=== PATIENT | male | born 1995 ===

== ENCOUNTER → 2016-09-05 14:49 | Outpatient (CLI) | payer BC ==
[~2016-09-05 14:49] MED LIST: HYDROCODONE-APA1 TAB PO; KLONOPIN1 MG PO
[2016-09-19 07:03] VITALS: BMI 33.3
== END | disposition home or self-care (01) ==
LOC: D.MRI 14:49
DX: M25.562 Pain in left knee (principal)

== ENCOUNTER 2016-09-19 07:00 | Day surgery (SDC) | payer BC ==
[~2016-09-19] VITALS: Ht 175.3 cm; Wt 102.1 kg
[~2016-09-19 07:00] MED LIST changes: -HYDROCODONE-APA1 TAB PO
[2016-09-19 07:03] VITALS: BP 143/85; Ht 175.3 cm; Wt 102.1 kg
[2016-09-19] MEDS ORDERED: HYDROCODONE-APA1 TAB PO (10:02)
--- NOTE | 2016-09-19 11:47 | NUR ---
1130 IV DC WITH CATHER TIP INTACT
--- NOTE | 2016-09-23 07:07 | OP ---
PATIENT NAME: MIGEL BEAR MEDICAL RECORD: [id number] :96 LOCATION:MED ADMISSION DATE: SURGEON: ALEISHA WINN MD DATE OF OPERATION: 09/19/2016 PREOPERATIVE DIAGNOSIS: Left knee lateral meniscus tear. POSTOPERATIVE DIAGNOSIS: Left knee lateral meniscus tear. PROCEDURE PERFORMED: Left knee lateral meniscus repair using suture anchors as well as about 8 cc of PRP. SURGEON: Vipul Winn MD. ANESTHESIA: General. CONDITION: He tolerated the procedure well, was transferred to the recovery room in stable condition. INDICATIONS: This is a 21-year-old young man, who has been having significant knee pain with catch and a pop. We discussed options and wanted to go ahead and proceed with the knee scope. His MRI showed a lateral meniscus tear. It looked like a large bucket-handle tear. We discussed this and he elected to proceed with surgery. OPERATIVE REPORT: The patient was taken to the operating room, placed in a supine position. General anesthesia was obtained. Left knee was confirmed to be the correct knee. It was prepped and draped in normal fashion. Procedure was begun by placing a superior medial portal for the outflow, anterolateral portal for the inflow. I then proceeded to check the patellofemoral joint, which did not show any significant lesions. Dropping down the medial gutter into the medial joint line, the medial side of the knee looks very good. I did establish an anterior medial portal under direct visualization. Going to the notch, the ACL and PCL did not show any lesions. Placing him in a [id number] position, checking laterally, he had a large portion of his posterior lateral meniscus flipped into the joint. Overall, the tissue still looked very relatively healthy. I was able to push it back into its position and then placed 2 horizontal suture anchors across this, pulling it down. Using a probe, it did not pull away from the posterior corner as it was doing previously. We also obtained 60 cc of blood during this time ____ down and obtaining about 8 cc of PRP which I then placed a spinal needle on the area of the tear, stopped the camera as well as water and then injected into the area of the lateral meniscus tear. He was then closed, awakened and transferred to the recovery room in stable condition. We will get him started on post-knee meniscal repair protocols and proceed from this juncture. TRANSINT:[id number] Voice Confirmation ID: [id number] DOCUMENT ID: [id number] OPERATIVE REPORT [id number] MIGEL BEAR, ALEISHA MENESES MD at 0707 CC: [id number] DICTATION DATE: 09/19/16 1007 [facility] PRUNER: 09/19/[address] [facility] [place] 09/19/[address] [address]
== END 2016-09-19 11:45 | disposition home or self-care (01) ==
LOC: D.OPS 07:00 → D.PAN 09:00 → D.OPS 10:00 → D.PAN 10:00 → D.OPS 11:45
DX: S83.252A Bucket-handle tear of lateral meniscus, current injury, left knee, initial encounter (principal)

== ENCOUNTER 2017-04-10 07:04 | Day surgery (SDC) | payer BC ==
[~2017-04-10] VITALS: Ht 177.8 cm; Wt 106.6 kg
--- NOTE | ~2017-04-10 | OP ---
PATIENT NAME: MIGEL BEAR MEDICAL RECORD: [id number] :96 LOCATION:MED ADMISSION DATE: SURGEON: EUGENIO GAMBLE DO DATE OF OPERATION: 04/10/2017 PROCEDURE PERFORMED: Left knee lateral partial meniscectomy, left knee arthroscopy, partial lateral meniscectomy and lateral meniscal repair. PREOPERATIVE DIAGNOSIS: Left knee bucket handle lateral meniscal tear. POSTOPERATIVE DIAGNOSIS: Left knee bucket handle lateral meniscal tear. INDICATIONS: Mr. Figueroa is a 22-year-old male that had had a previous lateral meniscal tear in August 2016 and returned to the clinic with similar symptoms earlier this month. An MRI was done and seen to have re-torn his meniscus more extensively at this time previously and then isolated to the posterior horn and this time was a bucket handle tear that had flipped into the notch of the femur. This was noted and a long discussion was had with the patient about the risks of repairing it and then having to resect some of it as far as weightbearing status and recovery, and the great risk of early arthritis on that side of his knee. This was explained to him and his mother who were both present. He consented to undergo the procedure in the office and the risks and benefits were explained to him extensively. SURGEON: Eugenio Gamble DO. METER RECORD CLERK: ROBBIE Madrigal. DESCRIPTION OF PROCEDURE: The patient was taken to the operative suite, placed in supine position and given general anesthetic. The left leg was prepped and draped in sterile fashion. A timeout was done indicating the correct procedure and site and side as well as the correct patient, procedure then commenced. The patient had been given 2 grams of Ancef preoperatively. The lateral portal was established first. Using the 11 blade, using the previous horizontal incision, the trocar was then entered into the knee. A camera was entered up into the suprapatellar pouch, revealing some synovitis, but no tears in the articular cartilage of the patella or the trochlea and no loose bodies. The lateral gutter was then viewed and did not see any loose bodies. The medial gutter was then viewed and the medial compartment was viewed. No meniscal tears. However, there was a loose body in the medial compartment. It was removed. The ACL was then probed and seen to be in stable condition. The lateral meniscus was then seen, it had been flipped up into the notch. A reduction maneuver was performed and reduced back into the lateral compartment. The medial portal had been established. Some of the fat pad and soft tissue were chewed out of the way. After that was done, another reduction maneuver was made. A SpeedCinch was used in the posterior horn of the lateral meniscus and this appeared to be repaired well. There appeared to have been a horizontal tear of the meniscus, I attempted it to be repaired, but the tissue was too friable and chewed. The friable tissue was taken out with straight biter and using the shaver. What was left of the tear then and on the medial part of the medial third of the meniscus was then repaired using a vertical mattress suture, using all inside device from [employer] and that was placed and seemed to be very stable. Then, the stability was checked of the posterior horn and seemed to be loose. At that time, I noted that the tissue did not take the anchor and it was too friable for that so the posterior horn was partially resected using shaver and biter. The old suture OPERATIVE REPORT [id number] MIGEL BEAR anchor were removed as well. This was done and then the notch was drilled with a 0.62 K-wire putting 4 holes in the notch to allow for pluripotent cells to exit the notch and hopefully into the knee to assist him in the repair of the meniscus. After this was done, the trocar was withdrawn and the excess fluid was drained from the knee. Portals were closed using 4-0 Monocryl in an inverted interrupted fashion under the skin. The Steri-Strips were placed over that. Adaptic, 4 x 4s, ABD and Webril was wrapped over the knee and then 6-inch Carlos wrap was then wrapped on that and a BHAVYA hose was placed on the patient up to the knee. Blood loss was minimal. The patient was awakened and taken to the recovery in stable condition. TRANSINT:[id number] Voice Confirmation ID: [id number] DOCUMENT ID: [id number] EUGENIO GAMBLE DO CC: [id number] DICTATION DATE: 04/10/17 1314 SWITCH ADJUSTER: 04/10/172107 [facility] 04/10/17 [id number] [place] [address]
[~2017-04-10 07:04] MED LIST changes: +HYDROCODONE-APA1 TAB PO
[2017-04-10 09:03] VITALS: BP 111/71; Ht 177.8 cm; Wt 106.6 kg
[2017-04-10 09:04] LABS: HEMATOCRIT 44.7 % (42.0-54.0); HEMOGLOBIN 15.5 g/dL (13.5-17.5); MCH 30.8 pg (26.0-34.0); MCHC 34.7 g/dL (31.0-37.0); MCV 88.9 fL (80.0-100.0); RBC 5.03 10x6/uL (4.20-6.10); RDW 12.1 % (11.5-14.5); WBC 5.7 10x3/uL (4.8-10.8)
[2017-04-10] MEDS ORDERED: PERCOCET 5-3251 TAB PO (13:08)
[2017-04-10] MEDS ORDERED: TORADOL10 MG PO (13:08)
--- NOTE | 2017-04-10 16:37 | NUR ---
1355 BACK FROM LEFT KNEE SCOPE. HAS DRESSING AND IMMOBILZER ON AND BHAVYA HOSE UNDERNEATH. PT VERY SLEEPY AND RESPONSIVE TO PAINFUL STIMULI ONLY. ON V/S MONITOR. MONITORING PATIENT AND FAMILY AT PRESENT. CAPILLARY REFILL TO NAIL BEDS PULSE PEDAL PRESENT.
--- NOTE | 2017-04-10 16:50 | NUR ---
1455 MORE AWAKE ICE CHIPS SERVED.
--- NOTE | 2017-04-10 16:51 | NUR ---
1525 TOLERATING FULL LIQUIDS.
--- NOTE | 2017-04-10 16:59 | NUR ---
1559 IV DCD CATHETER INTACT. DISCHARGE INSTRUCTIONS GONE OVER VERBALLY UNDERSTANDS. WENT OVER SCRIPT APPOINTMENT AND INSTRUCTIONS. TOLD PT TO DO INSTRUCTIONS PER DR. GAMBLE.
--- NOTE | 2017-04-10 16:59 | NUR ---
1555 [facility] PATIENT.
--- NOTE | 2017-04-10 17:00 | NUR ---
1600 TO HOME VIA W/C WITH SPOUSE.
== END 2017-04-10 16:00 | disposition home or self-care (01) ==
LOC: D.OPS 07:04 → D.PAN 09:00 → D.OPS 09:00 → D.PAN 09:15 → D.OPS 16:00
PROVIDERS: Anesthesiology
DX: S83.252A Bucket-handle tear of lateral meniscus, current injury, left knee, initial encounter (principal); M25.561 Pain in right knee; Z01.812 Encounter for preprocedural laboratory examination